=== PATIENT | female | born 1950 | race Caucasian/White ===

== ENCOUNTER 2019-12-02 14:49 | Emergency (ER) | payer OTHER, MEDICAID ==
[~2019-12-02] VITALS: Ht 160 cm; Wt 78.0 kg
[~2019-12-02 14:49] MED LIST: AMOXICILLIN500 MG PO; ASPI-COR81 M3 PO; METFORMIN HCL500 MG PO; OMEPRAZOLE20 M2 PO; ZESTRIL40 MG PO; ZOCOR20 MG PO
[2019-12-02 14:58] VITALS: Ht 160 cm; Wt 78.0 kg
[2019-12-02 16:09] LABS: BASOPHIL % 1.8 % (0-2); PLATELET COUNT 266 x10^3mcL (130-400)
[2019-12-02 16:17] LABS: CALCIUM 9.7 mg/dL (8.5-10.1); CARBON DIOXIDE 27.6 mmol/L (21-32); CHLORIDE SERUM 99 mmol/L (98-107); CREATININE SERUM 0.8 mg/dL (0.6-1.0); GLUCOSE SERUM 102 mg/dL (74-106); POTASSIUM SERUM 3.6 mmol/L (3.5-5.1); SODIUM SERUM 138 mmol/L (136-145)
[2019-12-02 16:23] LABS: ALBUMIN 4.1 g/dL (3.4-5.0); ALKALINE PHOSPHATASE 53 U/L (46-116); ALT/SGPT 23 U/L (14-59); AST/SGOT 16 U/L (15-37); BILIRUBIN TOTAL 0.4 mg/dL (0.20-1.00); TOTAL PROTEIN, SERUM 7.4 g/dL (6.4-8.2)
[2019-12-02 16:52] VITALS: BP 157/77
== END 2019-12-02 16:52 | disposition home or self-care (01) ==
LOC: ED 14:49
PROVIDERS: Emergency Medicine
DX: R07.89 Other chest pain (principal); R51 Headache; I10 Essential (primary) hypertension; E11.9 Type 2 diabetes mellitus without complications; E78.00 Pure hypercholesterolemia, unspecified; M54.2 Cervicalgia
CPT/HCPCS: 36415; J1885

== ENCOUNTER 2020-08-28 19:42 | Emergency (ER) | payer OTHER, MEDICAID ==
[~2020-08-28] VITALS: Ht 160 cm; Wt 82.1 kg
[2020-08-28 19:48] VITALS: Ht 160 cm; Wt 82.1 kg
[2020-08-28 20:20] LABS: PLATELET COUNT 257 x10^3mcL (179-408); RED CELL DISTRIBUTION WIDTH 12.8 % (12.3-17.7)
[2020-08-28 20:21] LABS: BASOPHIL % 3.9 % (0.2-1.3)
[2020-08-28 20:30] LABS: CALCIUM 9.1 mg/dL (8.5-10.1); CHLORIDE SERUM 96 mmol/L (98-107); CREATININE SERUM 0.8 mg/dL (0.6-1.0); GLUCOSE SERUM 125 mg/dL (74-106); POTASSIUM SERUM 4.1 mmol/L (3.5-5.1); SODIUM SERUM 132 mmol/L (136-145)
[2020-08-28 20:35] LABS: ALBUMIN 4.1 g/dL (3.4-5.0); ALKALINE PHOSPHATASE 75 U/L (46-116); ALT/SGPT 24 U/L (14-59); AST/SGOT 12 U/L (15-37); BILIRUBIN TOTAL 0.4 mg/dL (0.20-1.00); LIPASE 119 IU/L (73-393); TOTAL PROTEIN, SERUM 7.9 g/dL (6.4-8.2)
[2020-08-28 21:44] VITALS: BP 147/71
== END 2020-08-28 21:44 | disposition home or self-care (01) ==
LOC: ED 19:42
PROVIDERS: Emergency Medicine
DX: R51.9 Headache, unspecified (principal); R07.89 Other chest pain; M25.512 Pain in left shoulder; M54.2 Cervicalgia; R10.13 Epigastric pain; I10 Essential (primary) hypertension; E11.9 Type 2 diabetes mellitus without complications; E78.00 Pure hypercholesterolemia, unspecified
CPT/HCPCS: J1885